=== PATIENT | male | born 2000 | race Caucasian/White ===

== ENCOUNTER → 2021-03-13 12:03 | Outpatient (BNVA) | payer BC, SELFPAY | PROVIDERS: PCP Family Medicine; Visit Provider Emergency Medicine | DX: Z20.2 Contact with and (suspected) exposure to infections with a predominantly sexual mode of transmission (principal) | CPT/HCPCS: 81000; 87491; 87591 ==

== ENCOUNTER → 2022-01-27 15:54 | Outpatient (BNVA) | payer SELFPAY | PROVIDERS: PCP Family Medicine; Visit Provider Emergency Medicine | DX: Z20.2 Contact with and (suspected) exposure to infections with a predominantly sexual mode of transmission (principal) | CPT/HCPCS: 86592; 87491; 87591; 87806 ==

== ENCOUNTER → 2022-02-02 10:15 | Outpatient (BNVA) | payer SELFPAY | PROVIDERS: PCP Family Medicine; Visit Provider Nurse Practitioner Family | DX: G89.29 Other chronic pain (principal); M54.16 Radiculopathy, lumbar region; R20.0 Anesthesia of skin; M43.06 Spondylolysis, lumbar region | CPT/HCPCS: 72100 ==

== ENCOUNTER → 2022-03-03 13:47 | Outpatient (BNVA) | payer OTHER, SELFPAY | PROVIDERS: PCP Family Medicine; Visit Provider Family Medicine | DX: M54.9 Dorsalgia, unspecified (principal); G89.29 Other chronic pain; Z13.1 Encounter for screening for diabetes mellitus | CPT/HCPCS: 80053; 85025; 85651; 86038; 86140 ==